=== PATIENT | female | born 1940 | race African-American/Black ===

== ENCOUNTER → 2025-01-21 | Outpatient (CLI) | payer MEDICARE, MEDICAID ==
[~2025-01-21] MED LIST: EZ-HD SUSPENSION(BARIUM SULFATE 340GM) PO ONE; RUTI1TAB2; azor; zoloft
== END | disposition home or self-care (01) ==
LOC: RAD 09:33
PROVIDERS: ATTEND Internal Medicine Gastroenterology
DX: K31.89 Other diseases of stomach and duodenum (principal); R13.10 Dysphagia, unspecified; K44.9 Diaphragmatic hernia without obstruction or gangrene
CPT/HCPCS: 74220